=== PATIENT | female | born 1990 | race African-American/Black ===

== ENCOUNTER 2022-08-16 15:37 | Emergency (ER) | payer MEDICAID, SELFPAY ==
--- NOTE | ~2022-08-16 | CT_ITS ---
EXAMINATION: HEAD CT WITHOUT CONTRAST CERVICAL SPINE CT WITHOUT CONTRAST CLINICAL INFORMATION: Head injury. Head and neck pain. COMPARISON: None. TECHNIQUE: Contiguous axial imaging of the head was performed without the administration of IV contrast. Axial multidetector volumetric images were also performed through the cervical spine without contrast. Multiplanar reconstructed images in coronal and sagittal orientations were submitted. DOSE: 1176 mGy-cm FINDINGS: HEAD: There is no evidence of acute intracranial hemorrhage or territorial infarction. No abnormal mass effect or midline shift is seen. [place] to white matter differentiation is well preserved. No extra-axial fluid collections are identified. The ventricles are normal in size. No abnormal attenuation in the brain parenchyma. Calvarium appears intact. Partial ethmoid sinus mucosal thickening. Remainder of the paranasal sinuses and mastoid air cells are well-aerated. CERVICAL SPINE: Cervical spine: There is anatomic alignment of the vertebral bodies and posterior elements. The atlantoaxial and atlantooccipital articulations are maintained. Slight reversal of the spinal curvature. Vertebral body heights and intervertebral disc spaces are maintained. No evidence of acute fracture. No prevertebral soft tissue swelling. Visualized lung apices appear unremarkable. No suspicious thyroid findings. CT/CT head/brain wo IV con IMPRESSION: 1. No CT evidence of acute intracranial hemorrhage. 2. No CT evidence of acute fracture or malalignment in the cervical spine.
--- NOTE | ~2022-08-16 | CT_ITS ---
EXAMINATION: HEAD CT WITHOUT CONTRAST CERVICAL SPINE CT WITHOUT CONTRAST CLINICAL INFORMATION: Head injury. Head and neck pain. COMPARISON: None. TECHNIQUE: Contiguous axial imaging of the head was performed without the administration of IV contrast. Axial multidetector volumetric images were also performed through the cervical spine without contrast. Multiplanar reconstructed images in coronal and sagittal orientations were submitted. DOSE: 1176 mGy-cm FINDINGS: HEAD: There is no evidence of acute intracranial hemorrhage or territorial infarction. No abnormal mass effect or midline shift is seen. De [place] Cruz to white matter differentiation is well preserved. No extra-axial fluid collections are identified. The ventricles are normal in size. No abnormal attenuation in the brain parenchyma. Calvarium appears intact. Partial ethmoid sinus mucosal thickening. Remainder of the paranasal sinuses and mastoid air cells are well-aerated. CERVICAL SPINE: Cervical spine: There is anatomic alignment of the vertebral bodies and posterior elements. The atlantoaxial and atlantooccipital articulations are maintained. Slight reversal of the spinal curvature. Vertebral body heights and intervertebral disc spaces are maintained. No evidence of acute fracture. No prevertebral soft tissue swelling. Visualized lung apices appear unremarkable. No suspicious thyroid findings. CT/CT cervical spine wo IV con IMPRESSION: 1. No CT evidence of acute intracranial hemorrhage. 2. No CT evidence of acute fracture or malalignment in the cervical spine.
--- NOTE | 2022-08-16 15:41 | ED_ITS ---
HPI - General Adult General Chief complaint: Overdose Stated complaint: OD, 8MG NARCAN GIVEN, UNCOOPERATIVE Time Seen by Provider: 08/16/22 15:41 Source: patient and EMS Mode of arrival: EMS History of Present Illness [facility] narrative: 31yo F with a PMHx of substance abuse BIBA for OD, found unresponsive on the street, given 8MG IN Narcan by PD and bagged by EMS with good result. Patient admits to using marijuana and drinking alcohol. denies other illicit substances. Admits fell and hit her head. Denies headache, neck pain, back pain, abdominal pain. Denies SI/HI. History limited as patient is lethargic/under the influence Onset (ago): unknown Related Data Allergies Allergy/AdvReac Type Severity Reaction Status Date / Time No Known Allergies Allergy Verified 08/16/22 16:02 Review of Systems Review of Systems: Neuro: + Headache Psych: No SI/HI ROS limited secondary patient being under the influence Yes all other systems are reviewed and are negative Constitutional: Constitutional: Reports as per [facility] Past Medical History Attestation statement: The following information was validated with the patient. Physical Exam ED Vital Signs: Vital Signs - 24 hr 08/16/22 15:59 08/16/22 16:39 Pulse Rate 80 76 Respiratory Rate 16 19 Blood Pressure 110/74 153/94 H Pulse Oximetry 99 100 Oxygen Delivery Method Room Air Room Air BMI result Body Mass Index 31.8 Const Other: + appears under the influence, lethargic. Alert to voice General: cooperative, no acute distress and lethargic Orientation/consciousness: lethargic HENSD Head: Yes normal to inspection and Yes atraumatic Ears: hearing grossly normal bilaterally General nose exam: Normal external nose present Face and sinus: Yes normal facial exam Eyes General: appearance normal, both eyes and all related structures Pupils: Equal, round and reactive pupils present EOM: EOMs intact bilaterally Neck Other: No midline cervical spinous tenderness Neck: Yes normal visual inspection and Yes no meningeal signs Resp Effort & Inspection: normal respiratory effort and no respiratory distress Auscultation: clear to auscultation bilaterally Cardio Rate: regular rate Heart sounds: S1 normal heart sound present and S2 normal heart sound present GI Inspection: Yes normal to inspection Palpation (GI): Soft to palpation, nontender, no guarding and not rigid General: Yes no CVA tenderness Back/Spine/Pelvis Other: No midline thoracic/lumbar spinous tenderness/step-off or deformity Back: no CVA tenderness Skin Rashes: no rashes Wounds: no wounds Neuro General: tone normal and no meningeal signs Cranial nerves: Yes Equal, round and reactive pupils present Extrem General: Yes normal to inspection Course Course Course Narrative: -1800--ED care transferred to [facility] pending head/C-spine CT, observation and re-evaluation for clinical sobriety Medical Decision Making [facility] Narrative Medical decision making narrative: 31yo F with a PMHx of substance abuse BIBA for OD, found unresponsive on the street, given 8MG IN Narcan by PD and bagged by EMS with good result. On exam vital signs stable, appears under the influence, lethargic, alert to voice, no evidence of trauma, no midline spinous tenderness throughout, moving all extremities. Concern for accidental overdose. Denies SI/HI. Rule out ICH vs fractures Plan: Head/C-spine CT, LOWE, patient currently refusing labs, observe and reassess for clinical sobriety Medical Records Medical records reviewed: Yes I reviewed the patient's medical records. Lab Data Lab results reviewed: Yes I reviewed the patient's lab results. Discharge Plan Discharge Clinical Impression: Drug overdose Patient Disposition: Still a Patient Instructions: Adult Overdose (ED) Additional Instructions: Avoid drugs and alcohol this can kill you, you almost today If you have thoughts of hurting herself or others return to the emergency department Continue taking her prescribed medications. Follow-up with your doctor Referrals: [facility] [Provider Group]
[2022-08-16 15:59] VITALS: BP 110/74; PULSE 80; RESP 16; O2SAT 99; BMI 31.8
--- NOTE | 2022-08-16 16:26 | MHC.CARE ---
Care Team attempted to meet with pt in ED room 9, however, pt was asleep. Care team will attempt to meet with pt at a later time.
[2022-08-16 16:39] VITALS: BP 153/94; PULSE 76; RESP 19; O2SAT 100
--- NOTE | 2022-08-16 17:10 | MHC.CARE ---
Care Team attampted to meet with pt in ED room 9, however, pt is asleep. T/w will re-attempt to offer a SUDE at a later time.
[2022-08-16 19:43] VITALS: BP 124/60; PULSE 91; RESP 18; TEMP 36.8; O2SAT 96
--- NOTE | 2022-08-16 20:36 | MHC.CARE ---
Care Team met with pt in ED room 9 and she reported she used to drink bottles of [place] alcohol and smoked marijuana daily when she was 13 years old to cope with grandmother's . She stated she has not smoked or drank alcohol until today. She reported she met with a friend of her but does not recall her address at the moment. Pt stated she took some shots of alcohol and smoked with a friend a couple of puffs of marijuana then proceeded to the store but fell down and a special police found her on the floor passed out. She reported previous history of use of cocaine and heroin but did not elaborate as she stated its in the past. Pt agreed to meet with the recovery team.
--- NOTE | 2022-08-16 21:16 | MHC.RECOVSUP ---
? Reason for consult:ETOH o? Current location:ED09? o? Identified substance use concern:? -? Overdose -? Support ? Intervention: ? Plan: o? Follow up tomorrow? ? Additional information:RC tried to wake pt up several times to discuss ats/ harm reduction, but pt is in a deep sleep and not responding to caption writer's voice.
[2022-08-17 00:55] VITALS: BP 101/64; PULSE 74; RESP 18; TEMP 36.9; O2SAT 99
[2022-08-17 03:23] VITALS: BP 98/53; PULSE 84; RESP 16; TEMP 36.6; O2SAT 98
[2022-08-17 05:43] VITALS: BP 104/62; PULSE 65; RESP 16; TEMP 36.6; O2SAT 96
--- NOTE | 2022-08-17 05:46 | PC.NURSE ---
PT REMINDED THAT A URINE SAMPLE IS NEEDED. PT STATES SHE DOES NOT NEED TO GO YET. NURSE MADE AWARE
--- NOTE | 2022-08-17 06:37 | PC.NURSE ---
PT reminded that we still need a urine sample . Pt states that she still doesn't need to go and will press call button when she fills up urine cup. Pt reminded that sample is very important to give the provider a full scope of issues. Pt understands and will call us when ready
== END 2022-08-17 07:48 | disposition left against medical advice (07) ==
PROVIDERS: Emergency Provider Emergency Medicine
DX: T40.2X1A Poisoning by other opioids, accidental (unintentional), initial encounter (principal); R51.9 Headache, unspecified; M54.2 Cervicalgia; Y92.9 Unspecified place or not applicable
CPT/HCPCS: 70450; 72125; 99284